=== PATIENT | female | born 1995 | race Caucasian/White ===

== ENCOUNTER 2017-01-07 00:24 | Emergency (ER) | payer OTHER ==
[2017-01-07 00:32] VITALS: BP 110/71; PULSE 70; RESP 18; TEMP 97.7; O2SAT 97
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
== END 2017-01-07 01:00 | disposition home or self-care (01) ==
DX: T24.212A Burn of second degree of left thigh, initial encounter (principal); T31.0 Burns involving less than 10% of body surface; X19.XXXA Contact with other heat and hot substances, initial encounter